=== PATIENT | female | born 1965 | race Caucasian/White ===

== ENCOUNTER 2018-04-02 23:07 | Emergency (ER) | payer SELFPAY ==
[~2018-04-02] VITALS: Ht 170.2 cm; Wt 56.7 kg
[2018-04-02 23:08] VITALS: BP 120/82
[2018-04-03] MEDS ORDERED: TDAP [DIPH/PERTUSSIS/TET] 0.5 ML VIAL IM ONE ×2 (00:30→00:35)
[2018-04-03] MEDS ORDERED: AMOX/CLAVULANATE 875 MG TABLET PO ONE (00:30)
[2018-04-03] MEDS ORDERED: HYDROCODONE/APAP 5/325MG 1 EACH TABLET PO ONE (00:30)
[2018-04-03] MEDS ORDERED: AMOX/CLAVULANATE 875 MG TABLET ONE (00:34)
[2018-04-03] MEDS ORDERED: HYDROCODONE/APAP 5/325MG 1 EACH TABLET ONE (00:34)
== END 2018-04-03 01:12 | disposition home or self-care (01) ==
LOC: ER 23:07
DX: S61.252A Open bite of right middle finger without damage to nail, initial encounter (principal); Z85.038 Personal history of other malignant neoplasm of large intestine; W54.0XXA Bitten by dog, initial encounter; Y93.89 Activity, other specified; Y92.89 Other specified places as the place of occurrence of the external cause; Y99.8 Other external cause status
CPT/HCPCS: 12001; 90471; 90715; 99283; A4606; A6402; Z7610

== ENCOUNTER 2019-10-29 13:55 | Emergency (ER) | payer MEDICAID ==
[~2019-10-29] VITALS: Ht 167.6 cm; Wt 54.4 kg
--- NOTE | 2019-10-29 14:00 | NUR ---
patient came in to the ER c/o left eye pain, accidentally put a fresh drop (toilet) in her L eye 10/10 ps, B 20/20, L 20/30 R 20/20. On room air, breathing evenly and unlabored. connected to the monitor and pulse ox. kept comfortable, will continue to monitor accoridngly.
[2019-10-29] MEDS ORDERED: FLUORESCEIN SODIUM OPHTH 1 EA STRIP ONE (14:22)
[2019-10-29] MEDS: FLUORESCEIN SODIUM OPHTH 1 EA STRIP OP ONE (14:25)
[2019-10-29] MEDS: TETRACAINE HCL 0.5% OPHTALMIC 15 ML BOTTLE OP ONE (14:25)
--- NOTE | 2019-10-29 14:48 | NUR ---
CALLED [employer]ISON [employer] SO FLUSH WITH WATER FOR 15 MINS.
[2019-10-29] MEDS: IV NS 0.9% 1,000 ML BAG IV ONE (15:30)
[2019-10-29] MEDS ORDERED: LORAZEPAM 1 MG TABLET ONE (15:37)
[2019-10-29] MEDS ORDERED: IBUPROFEN 600 MG TABLET PO ONE (15:37)
--- NOTE | 2019-10-29 15:40 | NUR ---
left eye flashing started and tolerated well.
[2019-10-29] MEDS: LORAZEPAM 1 MG TABLET PO ONE (15:41)
[2019-10-29] MEDS: IBUPROFEN 600 MG TABLET PO ONE (15:41)
[2019-10-29 16:17] VITALS: BP 135/71
--- NOTE | 2019-10-29 16:17 | NUR ---
Patient discharged to home in stable condition. Written and verbal after care instructions given. Patient verbalizes understanding of instruction.
== END 2019-10-29 16:17 | disposition home or self-care (01) ==
LOC: ER 13:55
DX: H10.212 Acute toxic conjunctivitis, left eye (principal); F41.9 Anxiety disorder, unspecified; Z85.038 Personal history of other malignant neoplasm of large intestine
CPT/HCPCS: 99283; J7030

== ENCOUNTER 2021-09-21 17:17 | Emergency (ER) | payer MEDICAID, OTHER ==
--- NOTE | 2021-09-21 19:10 | NUR ---
called to triage no answer not in waiting room.
--- NOTE | 2021-09-21 19:25 | NUR ---
called to triage still no answer
--- NOTE | 2021-09-21 19:40 | NUR ---
CALLED TO TRIAGE NO ANSWER.
== END 2021-09-21 19:40 | disposition left against medical advice (07) ==
LOC: ER 17:17
DX: Z53.21 Procedure and treatment not carried out due to patient leaving prior to being seen by health care provider (principal)